=== PATIENT | male | born 1990 ===

== ENCOUNTER 2016-11-24 17:58 | Emergency (ER) | payer SELFPAY ==
[~2016-11-24] VITALS: Ht 175.3 cm; Wt 130.0 kg
[2016-11-24] MEDS ORDERED: ONDANSETRON 2 MG/ML (Z0FRAN) 2 ML VIAL IV ONE (18:15)
--- NOTE | 2016-11-24 18:36 | NUR ---
PT TELLS THIS RN THAT HE HAS HAD COUGH OFF/ON FOR 1 MO. HAS HAD SORE THROAT X SEVERAL DAYS, THEN VOMITING/DIAHHREA. GMA AT BEDSIDE. CL
[2016-11-24] MEDS ORDERED: KETOROLAC 15 MG/ML (TORADOL) 1 ML VIAL IV ONE (18:45)
[2016-11-24 18:48] LABS: BASOPHILS % (AUTO) 0 % (0-2); EOSINOPHILS # (AUTO) 0.2 10^3uL; EOSINOPHILS % (AUTO) 1 % (0-4); LYMPHOCYTES # (AUTO) 3.8 X10^3; MEAN CORPUSCULAR HEMOGLOBIN 28.5 PG (26.0-34.0); MEAN CORPUSCULAR HGB CONC 34.1 g/dL (31.0-37.0); MEAN CORPUSCULAR VOLUME 84 FL (80-100); MEAN PLATELET VOLUME 11.2 FL (6.0-9.5); MONOCYTES # (AUTO) 1.9 X10^3; MONOCYTES % (AUTO) 10 % (3-11); NEUTROPHILS # (AUTO) 12.9 X10^3; NEUTROPHILS % (AUTO) 68 % (51-67); PLATELET COUNT 194 10^3uL (150-450); WHITE BLOOD COUNT 18.84 10^3uL (4.0-11.0)
[2016-11-24 18:53] LABS: ALBUMIN 4.5 g/dL (3.4-5.0); ANION GAP 16.2 MEQ/L (3-15); CALCULATED IONIZED CALCIUM 3.9 mg/dL (3.8-4.6); TOTAL PROTEIN 8.1 g/dL (6.4-8.5)
--- NOTE | 2016-11-24 18:59 | NUR ---
REPORT GIVEN & CARE TSF TO NÉSTOR MUSA RN. CL
[2016-11-24 19:35] VITALS: BP 155/77
== END 2016-11-24 19:32 | disposition home or self-care (01) ==
LOC: ED 17:59
DX: J02.0 Streptococcal pharyngitis (principal)
CPT/HCPCS: 36415; 80053; 85025; 87651; 96374; 96375; 99283; J1885; J2405; J7030; 96361